=== PATIENT | female | born 1980 | race Caucasian/White ===

== ENCOUNTER 2016-11-19 14:46 | Emergency (ER) | payer OTHER ==
[~2016-11-19 14:46] MED LIST: FLEXERIL PO; KCL PO; MOBIC15 MG PO; NAPROXEN PO; NO MEDICATIONS; VICODIN 5/500 T1 TAB PO
== END 2016-11-19 15:53 | disposition home or self-care (01) ==
LOC: SED 14:46
DX: M43.6 Torticollis (principal)
CPT/HCPCS: 99283

== ENCOUNTER 2017-01-06 11:48 | Emergency (ER) | payer OTHER | END 2017-01-06 12:15 | disposition home or self-care (01) | LOC: SED 11:48 | DX: S30.861A Insect bite (nonvenomous) of abdominal wall, initial encounter (principal); F17.210 Nicotine dependence, cigarettes, uncomplicated; Z90.49 Acquired absence of other specified parts of digestive tract; Z88.8 Allergy status to other drugs, medicaments and biological substances | CPT/HCPCS: 99283 ==